=== PATIENT | female | born 1950 | race Caucasian/White ===

== ENCOUNTER 2021-09-25 11:13 | Emergency (ER) | payer MEDICARE, OTHER ==
[~2021-09-25] VITALS: Ht 152.4 cm; Wt 64.4 kg
[~2021-09-25 11:13] MED LIST: AVASTIN25 MG/1 ML IV
[2021-09-25] MEDS ORDERED: VITAMIN C500 M1 PO (11:35)
[2021-09-25] MEDS ORDERED: CALCIUM 500 MG1 EAC4 PO (11:35)
[2021-09-25] MEDS ORDERED: MAGNESIUM OXID400 M1 PO (11:35)
[2021-09-25] MEDS ORDERED: ALPHA LIPOIC A100 MG PO (11:36)
[2021-09-25] MEDS ORDERED: VISION VITAMIN1 EACH PO (11:36)
[2021-09-25] MEDS ORDERED: VITAMIN D250 MC1 PO (11:36)
[2021-09-25] MEDS ORDERED: ZINC30 MG PO (11:37)
[2021-09-25] MEDS ORDERED: CENTRUM SILVER1 EAC5 PO (11:37)
[2021-09-25] MEDS ORDERED: GLUCOSAMINE CH1 EAC8 PO (11:37)
[2021-09-25] MEDS ORDERED: FERROUS SULFAT325 MG PO (11:38)
--- NOTE | 2021-09-25 13:49 | EKG ---
[facility] [address] [facility] [place], [place] [address] Signed Normal sinus rhythm Normal ECG No previous ECGs available Confirmed by VINCE TIJERINA MD ([id number]) on 09/25/2021 1:49:33 PM Electronically Signed By: VINCE TIJERINA MD 09/25/21 1349 PATIENT NAME: KATHI LIMON Electrocardiogram DATE OF : 48 PHYSICIAN: VINCE TIJERINA MD REPORT #: [id number] REPORT IS CONFIDENTIAL AND NOT TO BE RELEASED WITHOUT AUTHORIZATION
== END 2021-09-25 13:31 | disposition home or self-care (01) ==
LOC: ED 11:13
DX: R07.89 Other chest pain (principal); R55 Syncope and collapse; E78.00 Pure hypercholesterolemia, unspecified; Z88.5 Allergy status to narcotic agent; Z79.899 Other long term (current) drug therapy
CPT/HCPCS: 36415; 80048; 84484; 85025; 93005; 93010; 99285-25

== ENCOUNTER 2024-08-17 07:40 | Day surgery (SDC) | payer MEDICARE, OTHER ==
[~2024-08-17] VITALS: Ht 152.4 cm; Wt 64.4 kg
[~2024-08-17 07:40] MED LIST changes: +ALPHA LIPOIC A100 MG PO; +CALCIUM 500 MG1 EAC4 PO; +CALCIUM500 MG PO; +CENTRUM SILVER1 EAC5 PO; +FERROUS SULFAT325 MG PO; +GLUCOSAMINE CH1 EAC8 PO; +IBLOOD GLUCOSE TEST STRIP 1 EA TEST VI PRN; +LACTATED RINGER'S 1,000 ML IV SCH; +LIDOCAINE HCL 1% 5 ML SDV INJ ONE; +MAGNESIUM OXID400 M1 PO; +METFORMIN HCL500 M3 PO; +MIDAZOLAM HCL 5 MG/5 ML VIAL IV PRN; +ROSUVASTATIN CA10 MG PO; +VISION VITAMIN1 EACH PO; +VITAMIN C500 M1 PO; +VITAMIN D250 MC1 PO; +ZINC30 MG PO; +fentaNYL citrate 100 MCG/2 ML VIAL IV PRN
[2024-08-17 07:54] VITALS: BP 164/75
[2024-08-17] MEDS ORDERED: fentaNYL citrate 100 MCG/2 ML VIAL ONE (07:55)
[2024-08-17] MEDS ORDERED: MIDAZOLAM HCL 5 MG/5 ML VIAL ONE (07:55)
--- NOTE | 2024-08-17 08:54 | NUR ---
08/17/24 0854 Apoorva Valle 0848-PATIENT ARRIVED TO PACU ON 3L NC RR EVEN. PATIENT DROWSY LAYING LEFT LATERAL ABDOMEN SOFT. IVF INFUSING. ENCOURAGED TO PASS GAS. 0853-GLUCOSE 122
--- NOTE | 2024-08-17 09:29 | OR ---
[facility] [address] [place], [place] [address] Signed DATE OF OPERATION: 08/17/2024 SURGEON: Suresh Colorado MD PREOPERATIVE DIAGNOSES: 1. Personal history of colonic polyps. 2. Moderate internal and external hemorrhoids. POSTOPERATIVE DIAGNOSES: 1. Minimal sigmoid diverticulosis. 2. Moderate internal and external hemorrhoids. PROCEDURE: Colonoscopy without biopsy. ESTIMATED BLOOD LOSS: None. INDICATIONS: Park is a 73-year-old female, asked to see me for a followup colonoscopy. I helped her in 2011 at the age of 60 and again in 2019 at the age of 68. She had four small tubular adenomatous polyps removed. She does have moderate internal and external hemorrhoids. She did well with 6 mg of Versed and 100 mcg of fentanyl. She told me her mom lived to be 105. She and her exercise every day and are very careful with their diet. They stay in excellent shape. She has no family history of colon cancer or polyps. She has no lower GI complaints. In the office, I gave her a pamphlet on colonoscopy. She understands the nature of the test. There is risk including, but not limited to gas bloating, crampy abdominal pain, bleeding, perforation requiring surgery, and missed diagnosis. We also reviewed the written instructions for the bowel prep line by line. She is very familiar with our bowel prep. She also understands the need for IV sedation. Her always takes her home afterwards. She had expressed understanding and wished to proceed. DESCRIPTION OF PROCEDURE: Park was taken into our endoscopy suite and placed in the left lateral decubitus position. She was given IV sedation with 5 mg of Versed and 100 mcg of fentanyl. A digital rectal exam was performed. She does have moderate circumferential external hemorrhoids. She had good sphincter tone. There were no masses. The adult colonoscope was introduced and advanced under direct visualization of the camera without difficulty. Her prep was quite excellent as always. We could easily see the appendiceal orifice Electronically Signed By: SURESH COLORADO MD 08/17/24 0929 PATIENT NAME: PARK LIMON OPERATIVE REPORT DATE OF : 48 REPORT #: [id number] PHYSICIAN: SURESH COLORADO MD PCP: DEBORA LOZOYA MD REPORT IS CONFIDENTIAL AND NOT TO BE RELEASED WITHOUT AUTHORIZATION [facility] [address] [place] [id number] Signed and the ileocecal valve. The scope was then slowly withdrawn. She does have a few diverticula in the sigmoid colon. They are small in size, shallow in nature and few in number and scattered about. The rectum itself was unremarkable. Upon retroflexion of the scope, she has minimal to moderate internal hemorrhoid columns as well. After this, the gas was suctioned out and the colonoscope removed. Park tolerated the procedure quite well. RECOMMENDATIONS: Park can follow up in 5 years for repeat screening colonoscopy. Suresh Colorado MD ALB/MODL /[id number] cc: MD Debora Luna MD Copies: SURESH COLORADO MD, RUSSEL J MD ~ Electronically Signed By: SURESH COLORADO MD 08/17/24 0929 PATIENT NAME: PARK LIMON OPERATIVE REPORT DATE OF : 48 REPORT #: [id number] PHYSICIAN: SURESH COLORADO MD PCP: DEBORA LOZOYA MD REPORT IS CONFIDENTIAL AND NOT TO BE RELEASED WITHOUT AUTHORIZATION
[2024-08-17 10:05] VITALS: BP 116/68
--- NOTE | 2024-08-17 11:40 | NUR ---
1005-PT BACK TO ROOM 7 FROM PACU. RECEIVED REPORT FROM CLINT ERNANDEZ. PT HAS EYES CLOSED. PT RESPONDS TO VERBAL STIMULI. DENIES PAIN. IN ROOM 1010-HOB ELEVATED. PT TAKING SIPS OF WATER. STILL DROWSY. NO OTHER NEEDS AT THIS TIME. CALL LIGHT WITHIN REACH.
--- NOTE | 2024-08-17 11:46 | NUR ---
1035-PT AWAKE TALKING WITH . PT FEELS GOOD AND IS READY TO GO HOME. PT WILL GET DRESSED. WILL STAY WITH PT.
--- NOTE | 2024-08-17 11:53 | NUR ---
1040-WENT OVER DISCHARGE INSTRUCTIONS WITH PT AND . ALL QUESTIONS ANSWERED. 1045 RIDE PROVIDED TO FRONT OF HOSPITAL WHERE WAS WAITING WITH THE CAR.
== END 2024-08-17 10:45 | disposition home or self-care (01) ==
LOC: DS 07:40
PROVIDERS: ATTEND Colon & Rectal Surgery
PROC: 0DJD8ZZ Inspection of Lower Intestinal Tract, Via Natural or Artificial Opening Endoscopic (ICD-10-PCS; principal; 2024-08-17 09:00)
DX: K64.8 Other hemorrhoids (principal); K64.4 Residual hemorrhoidal skin tags; K57.30 Diverticulosis of large intestine without perforation or abscess without bleeding; E11.9 Type 2 diabetes mellitus without complications; E78.5 Hyperlipidemia, unspecified; Z79.84 Long term (current) use of oral hypoglycemic drugs; Z88.5 Allergy status to narcotic agent; Z86.0101 Personal history of adenomatous and serrated colon polyps
CPT/HCPCS: 99153; G0500; J2250; J3010; J7121

== ENCOUNTER 2024-09-13 19:30 | Emergency (ER) | payer MEDICARE, OTHER ==
[~2024-09-13] VITALS: Ht 152.4 cm; Wt 64.9 kg
[~2024-09-13 19:30] MED LIST changes: -IBLOOD GLUCOSE TEST STRIP 1 EA TEST VI PRN; -LACTATED RINGER'S 1,000 ML IV SCH; -LIDOCAINE HCL 1% 5 ML SDV INJ ONE; -MIDAZOLAM HCL 5 MG/5 ML VIAL IV PRN; -fentaNYL citrate 100 MCG/2 ML VIAL IV PRN
[2024-09-13 19:49] LABS: BASOPHILS 0.7 % (0-2); EOSINOPHILS 1.8 % (0-6); HEMATOCRIT 32.4 % (35.0-50.0); LYMPHOCYTES 40.3 % (24-44); MCH 27.7 (27-36); MCV 81.5 fl (81-99); NEUTROPHILS 49.2 % (39-80); PLATELET COUNT 339 K/uL (140-440); RBC 3.97 M/ul (4.3-5.7); RDW 16.1 (10.5-15.0)
[2024-09-13 20:10] LABS: ALBUMIN 3.5 g/dL (3.4-5.0); ALBUMIN/GLOBULIN RATIO 1.09 (1.1-2.4); ANION GAP 14.6 (7-21); BILIRUBIN, TOTAL 0.3 ng/dL (0.2-1.0); BUN/CREATININE RATIO 23.33 (6.0-28.6); CALCIUM 8.9 mg/dL (8.5-10.1); CREATININE, SERUM 0.9 mg/dL (0.55-1.02); POTASSIUM 3.6 mmol/L (3.5-5.1); PROTEIN, TOTAL 6.7 g/dL (6.4-8.2)
[2024-09-13] MEDS ORDERED: LACTATED RINGER'S 1,000 ML IV PRN (20:15)
[2024-09-13 21:18] VITALS: BP 128/74
--- NOTE | 2024-09-14 15:26 | EKG ---
[facility] [address] [facility] [place] [address] Signed Normal sinus rhythm Normal ECG When compared with ECG of 25-SEP-2021 11:23, T wave inversion now evident in Anterior leads Confirmed by Lavonne Zimmerman MD () on 09/14/2024 3:25:59 PM Electronically Signed By: LAVONNE ZIMMERMAN MD 09/14/24 1526 PATIENT NAME: KATHI LIMON Electrocardiogram DATE OF : 48 PHYSICIAN: LAVONNE ZIMMERMAN MD REPORT #: [id number] REPORT IS CONFIDENTIAL AND NOT TO BE RELEASED WITHOUT AUTHORIZATION
== END 2024-09-13 21:15 | disposition home or self-care (01) ==
LOC: ED 19:30
PROVIDERS: Internal Medicine
DX: R55 Syncope and collapse (principal); R00.1 Bradycardia, unspecified; R73.03 Prediabetes; Z88.5 Allergy status to narcotic agent; Z79.899 Other long term (current) drug therapy
CPT/HCPCS: 36415; 80053; 83735; 84484; 85025; 93005; 93010; 96360; 99284-25; J7121